=== PATIENT | male | born 1945 ===

== ENCOUNTER 2023-05-02 16:51 | Inpatient (IN) | payer OTHER ==
[~2023-05-02] VITALS: Ht 175.3 cm; Wt 90.7 kg
[2023-05-07] MEDS ORDERED: NAMENDA XR28 MG PO (09:55)
[2023-05-07] MEDS ORDERED: SYNTHROID75 MCG PO (09:56)
[2023-05-07] MEDS ORDERED: EXELON1 EACH TD (09:56)
[2023-05-07] MEDS ORDERED: DIOVAN160 M1 PO (09:56)
[2023-05-07] MEDS ORDERED: FOSAMAX70 MG PO (09:57)
[2023-05-07] MEDS ORDERED: HORIZANT300 MG PO (09:58)
[2023-05-07] MEDS ORDERED: TAMS0.4C PO (09:58)
[2023-05-07] MEDS ORDERED: ZOCOR20 MG PO (09:58)
[2023-05-07] MEDS ORDERED: METFORMIN HCL500 M3 PO (09:58)
[2023-05-07] MEDS ORDERED: CHILDREN'S ASPI81 MG PO (09:59)
[2023-05-14] MEDS ORDERED: TOLTERODINE TART2 M1 (08:35)
[2023-05-15] MEDS ORDERED: GABAPENTIN100 MG PO (11:52)
[2023-05-15] MEDS ORDERED: NORFLEX100MG PO (11:52)
[2023-05-15] MEDS ORDERED: OXYC1TAB9 PO (11:53)
[2023-05-15] MEDS ORDERED: XARELTO10 MG PO (11:54)
== END 2023-05-15 13:48 | DRG 470 ==
LOC: SURH 05-13 06:06 → O/R 05-13 06:06 → SURG 05-13 07:00 → SURH 05-13 12:04
PROVIDERS: ADMIT Orthopaedic Surgery; ATTEND Orthopaedic Surgery
PROC: 0SRD0JZ Replacement of Left Knee Joint with Synthetic Substitute, Open Approach (ICD-10-PCS; principal; 2023-05-13 07:00)
DX: M17.12 Unilateral primary osteoarthritis, left knee (principal); M85.662 Other cyst of bone, left lower leg; I10 Essential (primary) hypertension; E03.9 Hypothyroidism, unspecified; E11.9 Type 2 diabetes mellitus without complications; Z96.652 Presence of left artificial knee joint; Z20.822 Contact with and (suspected) exposure to COVID-19